=== PATIENT | male | born 1985 | race African-American/Black ===

== ENCOUNTER 2018-10-21 11:11 | Emergency (ER) | payer OTHER ==
[~2018-10-21] VITALS: Ht 190.5 cm; Wt 81.7 kg
[2018-10-21 11:20] VITALS: BP 113/68
[2018-10-21] MEDS ORDERED: VENTOLIN HFA 1818 GM INH (11:44)
[2018-10-21 11:47] LABS: URINE BILIRUBIN NEGATIVE (Negative); URINE BLOOD TRACE (Negative); URINE CLARITY SL CLOUDY; URINE COLOR YELLOW; URINE GLUCOSE-RANDOM* NEGATIVE (Negative); URINE KETONES NEGATIVE (Negative); URINE LEUKOCYTES-REFLEX 2+ (Negative); URINE NITRITE-REFLEX NEGATIVE (Negative); URINE PROTEIN (DIPSTICK) TRACE (Negative); URINE SPECIFIC GRAVITY 1.015 (1.005-1.035); URINE UROBILINOGEN 0.2 E.U./dl (0.2-1.0)
[2018-10-21 11:56] LABS: CASTS None Seen /LPF (None Seen); CRYSTALS None Seen /LPF (None Seen); SQUAMOUS None Seen /LPF (0-3); URINE RBC 0-2 Rare /HPF (0-2)
[2018-10-21 11:57] LABS: BACTERIA-REFLEX 1-9 Few /HPF (None Seen); MUCUS 0-3 Light strn/LPF (None Seen); URINE WBC-REFLEX >25 Many /HPF (0-5)
--- NOTE | 2018-10-22 07:44 | EKG ---
[facility] [place] [address] ELECTROCARDIOGRAM REPORT Name: DANE CEVALLOS Room #: DEP DEVIN Elizondo#: [id number] ������������������ Admission: 10/21/18 ������������������ Attend Phys: Discharge: 10/21/18 ������������������ Date of : 85 Report #: [id number] ����������������������������������������������������������������� [id number] THIS REPORT FOR: //name// [facility] ED Test Date: 2018-10-21 Test Time: 11:14:24 Pat Name: DANE CEVALLOS Department: Room: Gender: Senior Business Architect: JESUS : 1985 Requested By: Christo Ely Order Number: [id number] MD: Popeye Shelley Measurements Intervals Deloit Rate: 94 P: 87 CO: 120 QRS: 21 QRSD: 87 T: 62 QT: 335 QTc: 419 Interpretive Statements Sinus rhythm RSR' in V1 or V2, probably normal variant ST elev, probable normal early repol pattern No previous ECG available for comparison Electronically Signed On 10-22-2018 7:44:36 CDT by Popeye Shelley [email or web address] ��������������������������������������������� <ELECTRONICALLY SIGNED> ���������������������������������������� By: Popeye Shelley MD, [facility] ��������������������������������������������� 10/22/18 0744 1114 1114 Popeye Shelley MD, FACC /EPI
== END 2018-10-21 11:55 | disposition home or self-care (01) ==
LOC: ER 11:11
PROVIDERS: Emergency Medicine
DX: J45.901 Unspecified asthma with (acute) exacerbation (principal); Z20.2 Contact with and (suspected) exposure to infections with a predominantly sexual mode of transmission